=== PATIENT | female | born 1990 | race Hispanic/Latino ===

== ENCOUNTER 2018-12-16 06:54 | Emergency (ER) | payer SELFPAY ==
[2018-12-16 07:31] LABS: Absolute Lymphocytes (CBC) 2.2 K/uL (0.7-4.9); Basophils % 0.3 % (0-1.3); Hematocrit 39.9 % (36.0-45.0); RBC Red Blood Cell Count 4.82 M/uL (3.86-4.86)
[2018-12-16 07:50] LABS: ALT/SGPT 25 U/L (12-78); AST/SGOT 20 U/L (15-37); Albumin 3.9 g/dL (3.4-5.0); Alkaline Phosphatase 97 U/L (45-117); BUN Blood Urea Nitrogen 15 mg/dL (7-18); Bicarbonate 26 mmol/L (21-32); Bilirubin Direct 0.1 mg/dL (0-0.2); Bilirubin Total 0.4 mg/dL (0.2-1.0); Glucose Level 104 mg/dL (74-106); Lipase 122 U/L (73-393); Potassium 3.6 mmol/L (3.5-5.1); Protein, Total 7.7 g/dL (6.4-8.2); Sodium Level 139 mmol/L (136-145)
--- NOTE | 2018-12-16 09:02 | RAD REPORT ---
EXAM DESCRIPTION: CT - Abdomen Pelvis W Contrast - 12/16/2018 8:30 am CLINICAL HISTORY: Abdominal pain with vomiting and diarrhea COMPARISON: none. TECHNIQUE: Computed axial tomography of the abdomen pelvis was obtained. 100 cc Isovue-300 was admin istered intravenously. Oral contrast was not requested which limits evaluation of bowel. All CT scans are performed using dose optimization technique as appropriate and may include automated exposure control or mA/KV adjustment according to patient size. FINDINGS: The liver, spleen, pancreas, adrenal and kidneys appear unremarkable. There is no evidence of diverticulitis. Normal appendix 2 centimeter right ovarian cyst without significant free fluid IMPRESSION: 2 centimeter right ovarian cyst without significant free fluid
--- NOTE | 2018-12-16 09:16 | ER ---
Nurse's Notes [facility] Name: Jessi Zarate Age: 28 yrs Sex: Female : 1990 Arrival Date: 12/16/2018 Time: 07:00 Bed 8 Private MD: Diagnosis: Unspecified abdominal pain;Urinary tract infection, site not specified Presentation: 12/16 07:01 Presenting complaint: EMS states: Pt complaining of abdominal pain, nausea, vomiting ea and diarrhea, that started this AM. Transition of care: patient was not received from another setting of care. Onset of symptoms was December 16, 2018. Risk Assessment: Do you want to hurt yourself or someone else? Patient reports no desire to harm self or others. Initial Sepsis Screen: Does the patient meet any 2 criteria? No. Patient's initial sepsis screen is negative. Does the patient have a suspected source of infection? No. Patient's initial sepsis screen is negative. Care prior to arrival: None. 07:01 Method Of Arrival: EMS: [facility] ea 07:01 Acuity: SIL 3 ea Triage Assessment: 07:06 General: Appears in no apparent distress. Behavior is calm, cooperative, appropriate ea for age. Pain: Complains of pain in abdomen. GI: Abdomen is non-distended. Historical: - Allergies: 07:06 No Known Allergies; ea - Home Meds: 07:06 None [Active]; ea - PMHx: 07:06 None; ea - PSHx: 07:06 None; ea - Immunization history:: Adult Immunizations up to date. - Social history:: Smoking status: Patient/guardian denies using tobacco. - Ebola Screening: : No symptoms or risks identified at this time. Screenin:05 Abuse screen: Denies threats or abuse. Nutritional screening: No deficits noted. ea Tuberculosis screening: No symptoms or risk factors identified. Fall Risk None identified. Assessment: 07:24 General: Appears in no apparent distress. uncomfortable, well groomed, well developed, sg well nourished, Behavior is calm, cooperative, appropriate for age. Pain: Complains of pain in abdomen Quality of pain is described as aching, crampy, tender. Neuro: Level of Consciousness is awake, alert, obeys commands, Oriented to person, place, time, [place] are equal bilaterally Moves all extremities. Full function Speech is normal, Facial symmetry appears normal. Cardiovascular: Capillary refill is brisk in bilateral fingers Patient's skin is warm and dry. Chest pain is denied. Respiratory: Airway is patent Respiratory effort is even, unlabored, Respiratory pattern is regular, symmetrical. GI: Abdomen is round non-distended, Bowel sounds present X 4 quads. Abd is soft X 4 quads Abdomen is tender to palpation in right lower quadrant and left lower quadrant. GI: Reports diarrhea, nausea, tolerance of fluids, tolerance of food. : No signs and/or symptoms were reported regarding the genitourinary system. EENT: No signs and/or symptoms were reported regarding the EENT system. Derm: Skin is pink, warm \T\ dry. Musculoskeletal: Circulation, motion, and sensation intact. Range of motion: intact in all extremities. Vital Signs: 07:04 BP 134 / 84; Pulse 90; Resp 19; Temp 98.4; Pulse Ox 100% ; Weight 81.65 kg; Height 5 ea ft. 6 in. (167.64 cm); Pain 5/10; 07:34 BP 120 / 70; Pulse 75; Resp 18; Pulse Ox 100% ; sv 08:50 BP 107 / 76; Pulse 83; Resp 16; Pulse Ox 100% ; sv 07:04 Body Mass Index 29.05 (81.65 kg, 167.64 cm) ea ED Course: 07:00 Patient arrived in ED. ea 07:03 Dmitry Jackson NP is PHCP. pm1 07:03 Kelechi Pierson MD is Attending Physician. pm1 07:04 Triage completed. ea 07:07 Patient has correct armband on for positive identification. Placed in gown. Bed in low ea position. Call light in reach. Side rails up X2. 07:07 Arm band placed on right wrist. Patient placed in an exam room, on a stretcher, on ea pulse oximetry. 07:23 Gertrudis Chávez RN is Primary Nurse. bb 07:24 No provider procedures requiring assistance completed. Initial lab(s) drawn, by , sg sent to lab. Inserted saline lock: 22 gauge in right antecubital area, using aseptic technique. Blood collected. 07:55 Primary Nurse role handed off by Gertrudis Chávez RN sg 07:55 Escudero, Chava, RN is Primary Nurse. sg 08:31 CT Abd/Pelvis - IV Contrast Only In Process Unspecified. EDMS 08:50 LAB Add On Sent. sv 08:57 Urine Microscopic Only Sent. sv 09:50 IV discontinued, intact, bleeding controlled, No redness/swelling at site. Pressure sg dressing applied. Administered Medications: 09:30 Drug: GI Cocktail without - (Maalox Suspension 30 ml, Lidocaine Liquid 2 % 15 sg ml) Route: PO; 09:30 Drug: Zofran 4 mg Route: IVP; Site: right antecubital; sg 09:48 Drug: TORadol 30 mg Route: IVP; Site: right antecubital; sg Outcome: 09:15 Discharge ordered by MD. pm1 09:50 Discharged to home ambulatory, with family. sg 09:50 Condition: good 09:50 Discharge instructions given to patient, Instructed on discharge instructions, follow up and referral plans. medication usage, safety practices, Demonstrated understanding of instructions, follow-up care, medications, Prescriptions given X 3. 09:59 Patient left the ED. sg Addendum: 12/19/2018 07:27 Addendum: Culture Results: Positive urine culture. No further action required. Bacteria i w sensitive to prescribed antibiotic. Signatures: Dispatcher [employer] EDMS Tanesha Cardona RN RN sv Gay, Steven, RN RN sg Ballard, Brenda, RN RN bb Williams, Irene, RN RN iw Marinas, Patrick, [employer] pm1 Jessie Cardona RN RN ea
--- NOTE | 2018-12-16 09:16 | EDPHYS ---
Physician Documentation [facility] Name: Jessi Zarate Age: 28 yrs Sex: Female : 1990 Arrival Date: 12/16/2018 Time: 07:00 Bed 8 Private MD: ED Physician Kelechi Pierson HPI: 12/16 07:06 This 28 yrs old Female presents to ER via EMS with complaints of Abdominal pm1 Pain. 07:06 The patient presents with abdominal pain in the epigastric area. Onset: The pm1 symptoms/episode began/occurred today. The symptoms do not radiate. Associated signs and symptoms: Pertinent positives: nausea, vomiting, and diarrhea. The symptoms are described as crampy. The patient has not recently seen a physician. Historical: - Allergies: 07:06 No Known Allergies; ea - Home Meds: 07:06 None [Active]; ea - PMHx: 07:06 None; ea - PSHx: 07:06 None; ea - Immunization history:: Adult Immunizations up to date. - Social history:: Smoking status: Patient/guardian denies using tobacco. - Ebola Screening: : No symptoms or risks identified at this time. ROS: 07:06 Constitutional: Negative for fever, chills, and weight loss, Eyes: Negative for injury, pm1 pain, redness, and discharge, ENT: Negative for injury, pain, and discharge, Neck: Negative for injury, pain, and swelling. 07:06 Respiratory: Negative for shortness of breath, cough, wheezing, and pleuritic chest pain, Abdomen/GI: Negative for abdominal pain, nausea, vomiting, diarrhea, and constipation, Back: Negative for injury and pain, MS/Extremity: Negative for injury and deformity, Skin: Negative for injury, rash, and discoloration, Neuro: Negative for headache, weakness, numbness, tingling, and seizure. 07:06 Cardiovascular: Negative for chest pain, edema, palpitations. Exam: 07:06 Constitutional: This is a well developed, well nourished patient who is awake, alert, pm1 and in no acute distress. Head/Face: Normocephalic, atraumatic. Neck: Trachea midline, no thyromegaly or masses palpated, and no cervical lymphadenopathy. Supple, full range of motion without nuchal rigidity, or vertebral point tenderness. No Meningismus. Chest/axilla: Normal chest wall appearance and motion. Nontender with no deformity. No lesions are appreciated. Cardiovascular: Regular rate and rhythm with a normal S1 and S2. No gallops, murmurs, or rubs. Normal PMI, no JVD. No pulse deficits. Respiratory: Lungs have equal breath sounds bilaterally, clear to auscultation and percussion. No rales, rhonchi or wheezes noted. No increased work of breathing, no retractions or nasal flaring. Abdomen/GI: Soft, non-tender, with normal bowel sounds. No distension or tympany. No guarding or rebound. No evidence of tenderness throughout. Back: No spinal tenderness. No costovertebral tenderness. Full range of motion. Skin: Warm, dry with normal turgor. Normal color with no rashes, no lesions, and no evidence of cellulitis. MS/ Extremity: Pulses equal, no cyanosis. Neurovascular intact. Full, normal range of motion. 07:06 Neuro: Orientation: is normal, Mentation: is normal, appropriate for stated age, Motor: is normal. Vital Signs: 07:04 BP 134 / 84; Pulse 90; Resp 19; Temp 98.4; Pulse Ox 100% ; Weight 81.65 kg; Height 5 ea ft. 6 in. (167.64 cm); Pain 5/10; 07:34 BP 120 / 70; Pulse 75; Resp 18; Pulse Ox 100% ; sv 08:50 BP 107 / 76; Pulse 83; Resp 16; Pulse Ox 100% ; sv 07:04 Body Mass Index 29.05 (81.65 kg, 167.64 cm) ea MDM: 07:03 Patient medically screened. pm1 09:10 Data reviewed: vital signs. Data interpreted: Pulse oximetry: on room air is 100 %. pm1 Interpretation: normal. Counseling: I had a detailed discussion with the patient and/or guardian regarding: the historical points, exam findings, and any diagnostic results supporting the discharge/admit diagnosis, lab results, radiology results, the need for outpatient follow up, a family practitioner, a wetlands technician, to return to the emergency department if symptoms worsen or persist or if there are any questions or concerns that arise at home. 12/16 07:05 Order name: Basic Metabolic Panel; Complete Time: 07:53 pm1 12/16 07:05 Order name: CBC with Diff; Complete Time: 07:42 pm1 12/16 07:05 Order name: Creatinine for Radiology; Complete Time: 07:53 pm1 12/16 07:05 Order name: Hepatic Function; Complete Time: 07:53 pm1 12/16 07:05 Order name: Lipase; Complete Time: 07:53 pm1 12/16 08:03 Order name: LAB Add On eb 12/16 07:06 Order name: CT Abd/Pelvis - IV Contrast Only; Complete Time: 09:09 pm1 12/16 08:15 Order name: Urine Culture eb 12/16 08:15 Order name: Urine Microscopic Only; Complete Time: 09:37 eb 12/16 08:15 Order name: Urine Microscopic Only sg 12/16 08:18 Order name: Urine Dipstick--Ancillary (enter results); Complete Time: 09:37 eb 12/16 08:18 Order name: Urine --Ancillary (enter results); Complete Time: 09:37 eb 12/16 08:27 Order name: Test Serum, [place]; Complete Time: 09:09 EDMS 12/16 07:05 Order name: IV Saline Lock; Complete Time: 07:26 pm1 12/16 07:05 Order name: Labs collected and sent; Complete Time: 07:26 pm1 12/16 07:05 Order name: Urine Dipstick-Ancillary (obtain specimen); Complete Time: 08:31 pm1 12/16 07:05 Order name: Urine Test (obtain specimen); Complete Time: 08:31 pm1 Administered Medications: 09:30 Drug: GI Cocktail without - (Maalox Suspension 30 ml, Lidocaine Liquid 2 % 15 sg ml) Route: PO; 09:30 Drug: Zofran 4 mg Route: IVP; Site: right antecubital; sg 09:48 Drug: TORadol 30 mg Route: IVP; Site: right antecubital; sg Disposition: 12/16/18 09:15 Discharged to Home. Impression: Unspecified abdominal pain, Urinary tract infection, site not specified. - Condition is Stable. - Discharge Instructions: Abdominal Pain, Adult, Urinary Tract Infection, Adult. - Prescriptions for Bentyl 20 mg Oral Tablet - take 1 tablet by ORAL route every 6 hours As needed; 20 tablet. Pepcid 20 mg Oral Tablet - take 1 tablet by ORAL route every 12 hours for 10 days; 20 tablet. Bactrim DS 800- 160 mg Oral Tablet - take 1 tablet by ORAL route every 12 hours for 10 days; 20 tablet. - Work release form, Medication Reconciliation Form, Thank You Letter, Antibiotic Education, Prescription Opioid Use form. - Follow up: Emergency Department; When: As needed; Reason: Worsening of condition. Follow up: Private Physician; When: 2 - 3 days; Reason: Recheck today's complaints, Continuance of care, Re-evaluation by your physician. - Problem is new. - Symptoms have improved. Signatures: Dispatcher [employer] EDMS Chava Escudero RN RN sg Dmitry Jackson, [employer] pm1 Jessie Cardona RN RN ea Corrections: (The following items were deleted from the chart) 09:38 09:15 12/16/2018 09:15 Discharged to Home. Impression: Unspecified abdominal pain. pm1 Condition is Stable. Forms are Medication Reconciliation Form, Thank You Letter, Antibiotic Education, Prescription Opioid Use. Follow up: Emergency Department; When: As needed; Reason: Worsening of condition. Follow up: Private Physician; When: 2 - 3 days; Reason: Recheck today's complaints, Continuance of care, Re-evaluation by your physician. Problem is new. Symptoms have improved. pm1 09:59 09:38 12/16/2018 09:15 Discharged to Home. Impression: Unspecified abdominal pain; sg Urinary tract infection, site not specified. Condition is Stable. Discharge Instructions: Abdominal Pain, Adult. Prescriptions for Bentyl 20 mg Oral Tablet - take 1 tablet by ORAL route every 6 hours As needed; 20 tablet, Pepcid 20 mg Oral Tablet - take 1 tablet by ORAL route every 12 hours for 10 days; 20 tablet. and Forms are Medication Reconciliation Form, Thank You Letter, Antibiotic Education, Prescription Opioid Use. Follow up: Emergency Department; When: As needed; Reason: Worsening of condition. Follow up: Private Physician; When: 2 - 3 days; Reason: Recheck today's complaints, Continuance of care, Re-evaluation by your physician. Problem is new. Symptoms have improved. pm1
[2018-12-16] MEDS ORDERED: KETOROLAC 30 MG/ML INJ ONE (09:19)
[2018-12-16] MEDS ORDERED: LIDOCAINE VISCOUS 2% SOLN 15 ML UDC ONE (09:19)
[2018-12-16] MEDS ORDERED: ONDANSETRON 4 MG/2 ML VIAL ONE (09:19)
[2018-12-16] MEDS ORDERED: MAGNE/ALUM HYDROXD 30 ML UCUP ONE (09:19)
[2018-12-16 09:21] LABS: Urine Bacteria 20-50 /HPF (<20); Urine Culture Reflex Order NOT NEEDED; Urine RBC <5 /HPF (NONE SEEN)
[2018-12-16 09:32] LABS: Urine Blood TRACE (NEG); Urine Glucose NEGATIVE (NEG); Urine Protein NEGATIVE (NEG); Urine pH 5.5 (5.0-7.0)
== END 2018-12-16 09:59 | disposition home or self-care (01) ==
LOC: ER 06:54
DX: N39.0 Urinary tract infection, site not specified (principal)
CPT/HCPCS: 36415; 74177; 80048; 80076; 81003; 81015; 81025; 83690; 84703; 85025; 87077; 87086; 87088; 87186; 96374; 96375; 99284; J2405; Q9967